=== PATIENT | male | born 1990 | race Caucasian/White ===

== ENCOUNTER 2017-01-20 20:00 | Emergency (ER) | payer OTHER ==
[~2017-01-20] VITALS: Ht 182.9 cm; Wt 68.2 kg
[2017-01-20] MEDS ORDERED: LIDOCAINE 2% MDV 20 ML VIAL SC ONE (21:00)
[2017-01-20] MEDS ORDERED: KEFL500C17 PO (21:21)
[2017-01-20 21:26] VITALS: BP 130/65
== END 2017-01-20 21:34 | disposition home or self-care (01) ==
LOC: M ED 20:00
DX: S61.210A Laceration without foreign body of right index finger without damage to nail, initial encounter (principal); W31.9XXA Contact with unspecified machinery, initial encounter; Y92.099 Unspecified place in other non-institutional residence as the place of occurrence of the external cause; Y93.9 Activity, unspecified; Y99.9 Unspecified external cause status; F17.200 Nicotine dependence, unspecified, uncomplicated